=== PATIENT | male | born 1965 | race Caucasian/White ===

== ENCOUNTER 2021-07-18 18:18 | Emergency (ER) | payer MEDICAID, SELFPAY ==
[~2021-07-18] VITALS: Ht 170.2 cm; Wt 95.3 kg
[~2021-07-18 18:18] MED LIST: ATOR20TA64 PO; EMPA10TA PO; METF-834 PO; TELM40TA2 PO
[2021-07-18 18:27] VITALS: BP_SYST 183
[2021-07-18] MEDS ORDERED: DIPHENHYDRAMINE HCL 50 MG CAPSULE PO ONE (18:45)
[2021-07-18] MEDS ORDERED: FAMOTIDINE 20 MG TABLET PO ONE (18:45)
[2021-07-18] MEDS ORDERED: KETO60CR2 TP (21:30)
[2021-07-18] MEDS ORDERED: DESO60CR TP (21:30)
[2021-07-18] MEDS ORDERED: DIPH25CA83 PO (21:31)
[2021-07-18 21:40] VITALS: BP_SYST 135
== END 2021-07-18 21:40 | disposition home or self-care (01) ==
LOC: SED 18:18
DX: L30.9 Dermatitis, unspecified (principal); I10 Essential (primary) hypertension; E11.9 Type 2 diabetes mellitus without complications; Z79.899 Other long term (current) drug therapy
CPT/HCPCS: 99283; Q0163

== ENCOUNTER 2023-10-24 20:27 | Emergency (ER) | payer BC, MEDICAID ==
[~2023-10-24] VITALS: Ht 180.3 cm; Wt 111.1 kg
[~2023-10-24 20:27] MED LIST changes: +DESO60CR TP; +DIPH25CA83 PO; +KETO60CR2 TP
[2023-10-24 20:31] VITALS: BP_SYST 197; PULSE 89; RESP 16; TEMP 98.5; O2SAT 96
[2023-10-24] MEDS ORDERED: LIDOCAINE 1%, 20 ML MDV 20 ML ONE (20:52)
[2023-10-24] MEDS: LIDOCAINE 1% 10 MG/ML, 20 ML MDV INJ ONE (21:25)
[2023-10-24] MEDS: BACITRACIN 1 GM OINT TP ONE (21:25)
[2023-10-24] MEDS: IBUPROFEN 800 MG TABLET PO ONE (21:28)
[2023-10-24] MEDS: DIPHTH,PERTUSS(ACELL),TET VAC 0.5 ML VIAL (Tdap) I.M. ONE (21:28)
[2023-10-24 21:47] VITALS: BP_SYST 197; PULSE 89; RESP 16; TEMP 98.5; O2SAT 96
== END 2023-10-24 21:40 | disposition home or self-care (01) ==
LOC: SED 20:27
DX: S61.211A Laceration without foreign body of left index finger without damage to nail, initial encounter (principal); Z79.899 Other long term (current) drug therapy; W26.8XXA Contact with other sharp object(s), not elsewhere classified, initial encounter; Y93.89 Activity, other specified; Y92.89 Other specified places as the place of occurrence of the external cause; Y99.8 Other external cause status
CPT/HCPCS: 90715; 99283; J2001